=== PATIENT | male | born 1955 | race Caucasian/White ===

== ENCOUNTER 2019-07-14 10:22 | Inpatient (IN) ==
[2019-07-14] MEDS ORDERED: ONDANSETRON INJ 2 MG/ML 2 ML VIAL IV STA (10:39)
[2019-07-14] MEDS ORDERED: MoRPHine SULFATE 4 MG/ML 1 ML CARP\\VIAL IV STA (10:39)
[2019-07-14] MEDS ORDERED: SODIUM CHLORIDE 0.9% 500 ML IV SCH (10:45)
[2019-07-14 11:50] LABS: Basophils # (auto) 0.02 K/uL (0-0.2); Basophils % (auto) 0.3 %; Eosinophils # (auto) 0.11 K/uL (0-0.5); Eosinophils % (auto) 1.4 %; Hematocrit (blood only) 49.9 % (42-52); Hemoglobin 17.9 g/dL (14.0-18.0); Immature Granulocytes # (auto) 0.03 K/uL (0.00-0.02); Immature Granulocytes % (auto) 0.4 %; Lymphocytes # (auto) 1.54 K/uL (1.2-3.4); Lymphocytes % (auto) 20.2 %; Mean Corpuscular Hemoglobin 30.9 pg (25-34); Mean Corpuscular Hgb Conc 35.9 g/dL (32-36); Monocytes # (auto) 0.49 K/uL (0.11-0.59); Monocytes % (auto) 6.4 %; Neutrophils # (auto) 5.42 K/uL (1.4-6.5); Neutrophils % (auto) 71.3 %; Platelet Count 111 K/uL (130-400); RDW Coefficient of Variation 12.8 % (11.5-14.5); RDW Standard Deviation 40.2 fL (36.4-46.3); White Blood Count 7.61 K/uL (4.8-10.8)
[2019-07-14 12:16] LABS: Albumin Level 4.1 gm/dl (3.4-5.0); BUN Creatinine Ratio 15.2 (10-20); Calcium 9.4 mg/dl (8.5-10.1); Creatinine Clr Calc Pharmacy 69.9 ml/min; Est GFR (African American) 71.8; Est GFR (Non-African American) 61.9; Potassium 3.9 mmol/L (3.5-5.1)
[2019-07-14 12:18] LABS: Albumin Globulin Ratio 1.4 (0.9-2); Bilirubin,Total 2.8 mg/dl (0.2-1); Total Protein 7.1 gm/dl (6.4-8.2)
--- NOTE | 2019-07-14 13:35 | Ultrasound Report ---
US gallbladder HISTORY: Pain. Nausea. ruq pain eval for cholecystitis COMPARISON: 03/19/2019 FINDINGS: Gallbladder is again noted to be distended with a combination of sludge and gallstones. This distenti on is considered mild to moderate. No pericholecystic fluid. Fatty replacement of the liver. Pancreas is poorly seen due to overlying bowel content. Right kidney shows several cysts measuring up to 10 cm. This has been described on prior exams. No evidence for hy dronephrosis. IMPRESSION: 1. Mild to moderate distention of the gallbladder with a combination of contain stones and sludge. 2. Normal caliber common bile duct at 5 mm. 3. Fatty replacement of the liver. 4. Several right renal cyst. No evidence for hydronephrosis. 5. This study is similar compared to the prior exam. The above report was generated using voice recognition software. It may contain grammatical, syntax or spelling errors. Electronically signed by: Gilbert Watters M.D. 07/14/2019 1:34 PM
--- NOTE | 2019-07-14 15:00 | History & Physical Report ---
Date of Service July 14, 2019 Assessment & Plan (1) Biliary obstruction: Admits to PCU on telemetry for observation. Vital signs every [address] Oden MRCP ordered and pending Keep n.p.o. overnight Gentle IV fluid hydration with normal saline at 80 cc/h x1L Pain management with IV morphine 2 mg every 4 hours as needed and Toradol 15 mg every 6 hours as needed. Pantoprazole 40 mg p.o. every morning DVT prophylaxis SCDs and teds. Full code Present on Admission?: Yes (2) Cholelithiasis: Plan as above. Present on Admission?: Yes (3) Elevated lipase: Follow-up lipase and trend down. Present on Admission?: Yes (4) H/O: HTN (hypertension): Patient blood pressure was fluctuating during the day. Continue monitoring every 4 hours. Continue home medicine losartan 100 mg p.o. every morning and upgrade as needed. Patient advised about lifestyle modifications and weight loss. Present on Admission?: Yes (5) Complex sleep apnea syndrome: Continue CPAP that patient uses at home. Present on Admission?: Yes (6) Thrombocytopenia: It is not clear origin of thrombocytopenia but it was noted that platelets were decreased in March 2019 they were 97. Now they are 111. Not clear origin of thrombocytopenia. Patient denies bruising or internal blee ding. Would consider consulting hematology oncology for further evaluation of thrombocytopenia. Present on Admission?: Yes (7) Pulmonary nodule: CT scan showed incidental finding of 5 mm nodule within the left lower lobe. Optional follow-up is CT scan at 12 months. Present on Admission?: Yes History of Present Illness Chief Complaint: Right upper quadrant pain Primary Care Provider: TR Sim Patient is a 63 years old male with past medical history of pancreatitis, obstructive sleep apnea, patient uses CPAP at night, hypertension who presents to the emergency room with complaint of abdominal discomfort that started this morning around 6 AM. Patient developed a mostly right-sided abdominal pain that radiates to his back. Patient describes his pain as a back spasm. He noted that burping helped and relieved some of his pain. Patient reports having similar pain in March when he had a CT scan which showed distended gallbladder with stone and sludge. Patient states that he was dry heaving this morning but he did not vomit. Patient denies fever, chills, headache, chest pain, shortness of breath, frequency, urgency, melena, dysuria, hematuria or hematochezia. Labs are reviewed: WBC is 7.61, hemoglobin 17.9, hematocrit 49.9, platelets 111. Sodium 143, potassium 3.9, chloride 110, BUN 19, creatinine 1.24, GFR 61.9, AST 226, ALT 263, alkaline phosphatase 109, lipase 560. CT scan of abdomen and pelvis shows: Distended gallbladder. This is nonspecific but could represent a developing acute cholecystitis. Hepatic steatosis. No bowel wall thickening or obstruction. Normal appendix. Colonic diverticulosis. Bilateral renal cyst. A 5 mm nodule within the left lower lobe. Ultrasound of the right upper quadrant showed distended gallbladder containing a few punctate stones and sludge. No significant gallbladder wall thickening. Negative sonographic Jonas sign. There must be trace júnior-cholecystitis fluid/edema. Therefore these findings are equivocal to acute cholecystitis. Hepatic steatosis. Right renal cyst. Mild to moderate distention of the gallbladder with combination of containing stones and sludge. Normal caliber common bile duct at 5 mm(this was repeated test comparison to March 19, 2019). Decision was made to admit patient to PCU on telemetry for observation for biliary colic, developing acute cholecystitis. Allergies Allergy/AdvReac Type Severity Reaction Status Date / Time codeine AdvReac Nausea Unverified 07/14/19 11:11 Home Medications Home Medications Medication Instructions Recorded Confirmed Type fexofenadine 180 mg tablet 180 mg PO DAILY PRN tab 03/19/19 07/14/19 History mwaqmprt-sljcn-kzl9-C-gal-bor 1 tab PO QAM 03/19/19 07/14/19 History [Mbyilqlhwvb-Hmfix-XIL Complex] multivitamin with minerals 1 tab PO QAM tab 03/19/19 07/14/19 History rabeprazole [AcipHex] 20 mg PO QAM 03/19/19 07/14/19 History miscellaneous medical supply #1 ea 03/21/19 05/03/19 Rx miscellaneous medical supply #1 ea 05/03/19 05/03/19 Rx losartan [Cozaar] 100 mg PO QAM 07/14/19 07/14/19 History Past Med/Surg History Medical History Central apnea Complex sleep apnea syndrome H/O: HTN (hypertension) Obstructive sleep apnea of adult Pancreatitis Sleep apnea with use of continuous positive airway pressure (CPAP) Surgical History No pertinent past surgical history Family History Other Family history non-contributory Social History Preferred Language: Maltese Communication Ability: Effective Beliefs That Will Affect Care: None Current Living Situation: Spouse Other Information That Helps Us Care for You: No Feels Safe at Home: Yes Safety Concerns: Feels Safe At This Time Smoking Status: Never smoker Hx Alcohol Use: No Hx Substance Use: No Review of Systems Review of Systems: All systems reviewed & are unremarkable except as noted in HPI & below Physical Exam Constitutional: WD/WN, vitals as above well developed and + obese Eyes: PERRL, conjunctivae normal, anicteric sclerae ENMT: external ear and nose normal, oropharynx normal Neck: trachea midline, no thyromegaly Respiratory: normal respiratory effort, lungs clear to auscultation Cardiovascular: RRR, no murmur, no edema Gastrointestinal (Abdomen): Inspection/Auscultation: + abdomen distended and normal bowel sounds Percussion/Palpation: abdomen soft and + dullness to percussion Mild discomfort in the right upper quadrant. Musculoskeletal: no cyanosis or clubbing, extremities motor strength 5/5 Skin: no rashes, warm and dry Neurologic: patellar DTR's 2+ bilat, sensation intact Psychiatric: A+Ox3, euthymic affect Lymphatic: no cervical or axillary lymphadenopathy Results & Data Vital Signs (Past 12 Hours) Vital Signs Temp Pulse Resp BP Pulse Ox 07/14/19 14:00 81 16 159/97 H 98 07/14/19 13:34 83 18 170/110 H 95 07/14/19 13:00 80 15 137/96 95 07/14/19 12:30 80 16 142/92 H 93 07/14/19 12:00 81 20 137/91 92 07/14/19 11:22 81 91 07/14/19 10:28 36.8 C 68 16 176/109 H 94 Code Status & VTE Plan Code Status Full code VTE Prophylaxis Plan VTE Prophylaxis will be ordered: No Reason for no VTE drug order: Contraindicated PG Care Time/CCT Total # of Minutes Spent Total Time Spent with Patient: Total time spent is greater than 50% in coordination of care (as documented) at patient's floor/unit and/or counseling patient: (1) Cholelithiasis Biliary obstruction: with biliary obstruction Cholelithiasis location: other site Qualified Code(s): K80.81 - Other cholelithiasis with obstruction
--- NOTE | 2019-07-14 15:47 | Emergency Department Note ---
Entered by Glenna Guallpa acting as a scribe for Sukhi Santana MD History of Present Illness General Chief complaint: GI Assessment Stated complaint: GALL BLADDER ATTACK Time Seen by Provider: 07/14/19 10:32 Source: patient History of Present Illness Onset (ago): hour(s) (0600 this morning) Location: abdomen (left and right) Severity: similar to prior episodes (in March ) Maximum Pain Intensity: 8 Quality: + other (GI assessment ) Relieved By: + other (burping) Associated symptoms: + other (Positive dry heeaving this morning. Negative vomiting, black or bloody stools, fevers); no chest pain and no shortness of breath The patient is a 63 year old male who presents to the ED for a GI assessment. He notes around 0600 this morning, he developed left and right sided abdominal pain that radiates to his back. He describes his pain as a "back spasm." He notes that burping helps relieve some of his pain. He notes this is similar to the pain he had in March when he had a CT which showed a distended gall bladder with stones and sludge. He states he was dry heaving this morning but did not vomit. The patient denies any black or bloody stools, fevers, chest pain, SOB. Home Medications Home Medications Medication Instructions Recorded Confirmed Type fexofenadine 180 mg tablet 180 mg PO DAILY PRN tab 03/19/19 07/14/19 History kvhehttn-aplqk-cth0-C-gal-bor 1 tab PO QAM 03/19/19 07/14/19 History [Vxiqsdeyvcu-Cdfhy-XFS Complex] multivitamin with minerals 1 tab PO QAM tab 03/19/19 07/14/19 History rabeprazole [AcipHex] 20 mg PO QAM 03/19/19 07/14/19 History miscellaneous medical supply #1 ea 03/21/19 05/03/19 Rx miscellaneous medical supply #1 ea 05/03/19 05/03/19 Rx losartan [Cozaar] 100 mg PO QAM 07/14/19 07/14/19 History Allergies Allergy/AdvReac Type Severity Reaction Status Date / Time codeine AdvReac Nausea Unverified 07/14/19 11:11 Past Med/Surg History Medical History Central apnea Complex sleep apnea syndrome H/O: HTN (hypertension) Obstructive sleep apnea of adult Pancreatitis Sleep apnea with use of continuous positive airway pressure (CPAP) Surgical History No pertinent past surgical history Family History Other Family history non-contributory Social History Preferred Language: Estonian Feels Safe at Home: Yes Smoking Status: Never smoker Review of Systems See HPI for pertinent positives & negatives. and A total of 10 systems reviewed and were otherwise negative Physical Exam Vital Signs Vital Signs - 24 hr 07/14/19 10:28 07/14/19 11:22 07/14/19 12:00 Temperature 36.8 C Temperature Source Oral Pulse Rate 68 81 81 Pulse Rate from SpO2 Sensor 81 Pulse Rhythm Regular Respiratory Rate 16 20 Respiratory Depth Normal Blood Pressure 176/109 H 137/91 Blood Pressure Mean 131 98 Pulse Oximetry 94 91 92 Oxygen Delivery Method Room Air Room Air Sepsis Recent Fever Within 48 Hours No Sepsis Action Taken by Nursing No Action Required 07/14/19 12:30 07/14/19 13:00 07/14/19 13:34 Temperature Temperature Source Pulse Rate 80 80 83 Pulse Rate from SpO2 Sensor 80 79 79 Pulse Rhythm Respiratory Rate 16 15 18 Respiratory Depth Blood Pressure 142/92 H 137/96 170/110 H Blood Pressure Mean 97 101 116 Pulse Oximetry 93 95 95 Oxygen Delivery Method Sepsis Recent Fever Within 48 Hours Sepsis Action Taken by Nursing 07/14/19 14:00 Temperature Temperature Source Pulse Rate 81 Pulse Rate from SpO2 Sensor 82 Pulse Rhythm Respiratory Rate 16 Respiratory Depth Blood Pressure 159/97 H Blood Pressure Mean 113 Pulse Oximetry 98 Oxygen Delivery Method Sepsis Recent Fever Within 48 Hours Sepsis Action Taken by Nursing Constitutional: Vital signs reviewed. Eyes: Pupils are equal round reactive to light. Conjunctiva are noninjected. ENT: Pharynx is clear without erythema or exudate. Mucous membranes are moist. Neck supple without meningeal signs. No uvula present Respiratory: Clear to auscultation bilaterally. Breath sounds are equal bilaterally. Cardiovascular: Regular rate and rhythm. No rubs or gallops. GI: Soft, nondistended. Epigastric and RUQ tenderness. No [place] sign Bowel sounds are present. Musculoskeletal: No peripheral edema. No lower extremity tenderness. Integumentary: No cyanosis. Neurological: The patient is awake and alert. No focal deficits. Psychiatric: Normal affect. Course Course 1035: Past medical records reviewed. The patient was evaluated in room B4. A complete history and physical exam was performed. 1249: I updated the patient at this time. I discussed his test results with him. He is feeling better and waiting for ultrasound. 1340: I updated the patient at this time. He is tenter frame back tender in the RUQ. I recommended hospitalization. Paged surgery. 1345: Discussed the patient's case with Dr. Norton, General Surgery. He recommends the patient be further evaluated by medicine. He will also further evaluate. 1350: Discussed the patient's case with Dr. Rosales, [facility] Hospitalist. The patient will be evaluated for further management. Administered Medications Discontinued Medications Sodium Chloride (Nss) 500 mls @ 999 mls/hr IV .Q31M WINDY Stop: 07/14/19 11:15 Last Infusion: 07/14/19 12:43 Dose: 0 mls/hr Documented by: [id number] Admin: 07/14/19 11:36 Dose: 999 mls/hr Documented by: [id number] Morphine Sulfate (Morphine Sulfate) 4 mg IV NOW STA Stop: 07/14/19 10:40 Last Admin: 07/14/19 11:37 Dose: 4 mg Documented by: [id number] Ondansetron HCl (Zofran) 4 mg IV NOW STA Stop: 07/14/19 10:40 Last Admin: 07/14/19 11:37 Dose: 4 mg Documented by: [id number] Medical Decision Making Differential Diagnosis Differential diagnosis: Etiologies such as cholecystitis, choledocholithiasis, pancreatitis, PUD, kidney stone, UTI, as well as others were entertained. Medical Records Attestation: I reviewed the patient's medical records. I did perform a limited focused review of portions of the patient's old chart on the electronic medical record. He was seen in March for abdominal pain. He had a CT which showed a distended gallbladder. He had an ultrasound which showed a distended gallbladder with stones and sludge. He did not have significant RUQ pain at the time. So he was discharged home. Home Medications Current Medication List: was personally reviewed by Laboratory Data Attestation: I reviewed the patient's lab results. Result diagrams: 07/14/19 11:40 07/14/19 11:40 Lab Results 07/14/19 07/14/19 Range/Units 11:40 11:40 WBC 7.61 (4.8-10.8) K/uL RBC 5.80 (4.7-6.1) M/uL Hgb 17.9 (14.0-18.0) g/dL Hct 49.9 (42-52) % MCV 86.0 (80-100) fL MCH 30.9 (25-34) pg MCHC 35.9 (32-36) g/dL RDW Std Deviation 40.2 (36.4-46.3) fL RDW Coeff of Sharee 12.8 (11.5-14.5) % Plt Count 111 L (130-400) K/uL MPV 10.0 (7.4-10.4) fL Immature Gran % (Auto) 0.4 % Neut % (Auto) 71.3 % Lymph % (Auto) 20.2 % Garza % (Auto) 6.4 % Eos % (Auto) 1.4 % Baso % (Auto) 0.3 % Immature Gran # (Auto) 0.03 H (0.00-0.02) K/uL Neut # (Auto) 5.42 (1.4-6.5) K/uL Lymph # (Auto) 1.54 (1.2-3.4) K/uL Garza # (Auto) 0.49 (0.11-0.59) K/uL Eos # (Auto) 0.11 (0-0.5) K/uL Baso # (Auto) 0.02 (0-0.2) K/uL Sodium 143 (136-145) mmol/L Potassium 3.9 (3.5-5.1) mmol/L Chloride 110 H (98-107) mmol/L Carbon Dioxide 27 (21-32) mmol/L Anion Gap 6.0 (3-11) BUN 19 H (7-18) mg/dl Creatinine 1.24 (0.6-1.4) mg/dl Est Cr Clr Drug Dosing 69.9 ml/min Est GFR ( Amer) 71.8 Est GFR (Non-Af Amer) 61.9 BUN/Creatinine Ratio 15.2 (10-20) Glucose 100 H (70-99) mg/dl Calcium 9.4 (8.5-10.1) mg/dl Total Bilirubin 2.8 H (0.2-1) mg/dl AST 226 H (15-37) U/L ALT 263 H (12-78) U/L Alkaline Phosphatase 109 (45-117) U/L Total Protein 7.1 (6.4-8.2) gm/dl Albumin 4.1 (3.4-5.0) gm/dl Globulin 3.0 (2.5-4.0) gm/dl Albumin/Globulin Ratio 1.4 (0.9-2) Lipase 560 H (73-393) U/L Imaging Data Radiologist's Impression: Radiology results as stated below per my review and the radiologist's interpretation: US gallbladder HISTORY: Pain. Nausea. ruq pain eval for cholecystitis COMPARISON: 03/19/2019 FINDINGS: Gallbladder is again noted to be distended with a combination of sludge and gallstones. This distention is considered mild to moderate. No pericholecystic fluid. Fatty replacement of the liver. Pancreas is poorly seen due to overlying bowel content. Right kidney shows several cysts measuring up to 10 cm. This has been described on prior exams. No evidence for hydronephrosis. IMPRESSION: 1. Mild to moderate distention of the gallbladder with a combination of contain stones and sludge. 2. Normal caliber common bile duct at 5 mm. 3. Fatty replacement of the liver. 4. Several right renal cyst. No evidence for hydronephrosis. 5. This study is similar compared to the prior exam. The above report was generated using voice recognition software. It may contain grammatical, syntax or spelling errors. Electronically signed by: Gilbert Watters M.D. 07/14/2019 1:34 PM ECG Data Attestation: I personally reviewed and interpreted this ECG as follows: Indication: + abdominal pain Rate (beats per minute): 68 Rhythm: + normal sinus ECG ST segments: no ST elevation ECG Findings: + Other (QRS is 90); no PVCs Blood Pressure Blood Pressure Findings: Elevated blood pressure Blood Pressure Disposition: further management by hospitalist [facility] Narrative I did evaluate the patient as noted above. The patient is presenting with upper abdominal pain. He is mostly tender in the epigastric region and right upper quadrant. He does not have a Jonas sign. IV access was established. The patient was placed on a continuous school librarian. I did treat the patient with IV morphine and Zofran. He was also given normal saline IV. I did order and personally review the patient's 12-lead EKG as described above. He has normal sinus rhythm without any acute ischemic changes.. I did order and review the patient's blood work as noted in the electronic medical record. His white blood cell count is not elevated. He is not anemic. His total bilirubin is 2.8. AST and ALT are both above 200. Lipase is 560. I did order ultrasound of the right upper quadrant. I did review the images myself as well as the radiology report as described above. He has a moderately distended gallbladder with gallstones and sludge. There is no pericholecystic fluid. CBD is not dilated. I did reassess the patient. He states he feels better but that the pain is starting to come back. He is still somewhat tender in the right upper quadrant. I did discuss the case with Dr. Norton of surgery. He recommended hospitalization by the hospitalist and GI consultation. I did speak to the [facility] pitalist and transplant case manager. Impression & Plan Biliary obstruction, Cholelithiasis, Elevated lipase Discharge Plan Visit Data Chief Complaint: GI Assessment Stated Complaint: GALL BLADDER ATTACK ED Provider: Sukhi Santana Discharge Problem: Biliary obstruction, Cholelithiasis, Elevated lipase Patient Disposition: Being Evaluated by Hospitalist Forms Stand Alone Forms: My [facility] Prescriptions Prescriptions: No Action (DME) CPAP Supplies Misc See Dose Instructions .ROUTE .MEDSUPPLY Qty: 1 RF: 0 (DME) CPAP Supplies Misc See Dose Instructions .ROUTE .MEDSUPPLY Qty: 1 RF: 0 fexofenadine [Jami Allergy] 180 mg tablet 180 mg PO DAILY PRN (Reason: Allergy Symptoms) RF: 0 multivitamin with minerals [Men's One Daily] tablet 1 tab PO QAM RF: 0 losartan [Cozaar] 100 mg tablet 100 mg PO QAM RF: 0 rabeprazole [AcipHex] 20 mg tablet,delayed release (DR/EC) 20 mg PO QAM RF: 0 Hxkxvsoconx-Kvagv-KRB Complex [id number] mg Tablet 1 tab PO QAM RF: 0 Referrals Referrals: Alexandria Contreras CRNP [Primary Care Provider] - Discharge Problem: Cholelithiasis Qualifiers: Cholelithiasis location: other site Biliary obstruction: with biliary obstruction Qualified Code(s): K80.81 - Other cholelithiasis with obstruction The scribe's documentation has been prepared under my direction and personally reviewed by me in its entirety. I confirm that the note above accurately reflects all work, treatment, procedures, and medical decision making performed by me.
[2019-07-14 16:31] LABS: Appearance Urine Clear (Clear); Blood Urine Negative (Negative); Color Urine Dark Yellow; Glucose Urine UA Negative (Negative); Ketones Urine Negative (Negative); Leukocyte Esterase Urine Negative (Negative); Nitrite Urine Negative (Negative); Protein Urine Negative (Negative); Specific Gravity Urine 1.019 (1.000-1.030); Urobilinogen Urine Negative (Negative); pH Urine 7.5 (4.5-7.5)
[2019-07-14 16:35] LABS: Bilirubin Urine 1+ (Negative)
[2019-07-14 16:36] LABS: Ictotest Urine Positive (Negative)
[2019-07-14] MEDS ORDERED: MoRPHine SULFATE 2 MG/ML CARP IV PRN (17:55)
[2019-07-14] MEDS ORDERED: MAGNESIUM HYDROXIDE SUSP 30 ML UDC PO PRN (17:55)
[2019-07-14] MEDS ORDERED: FEXOFENADINE HCL 180 MG TAB PO PRN (17:55)
[2019-07-14] MEDS ORDERED: ALUMINUM/MAGNESIUM SUSP 30 ML UDC PO PRN (17:55)
[2019-07-14] MEDS: CEROVITE ADV FORMULA TAB PO SCH (18:37)
[2019-07-14] MEDS: SODIUM CHLORIDE 0.9% 1000ML 1,000 ML IV SCH (18:37)
[2019-07-14] MEDS: LOSARTAN POTASSIUM 50 MG TAB PO SCH (18:37)
[2019-07-14] MEDS: KETOROLAC TROMETHAMINE 15 MG/ML VIAL IV PRN (19:39)
[2019-07-14] MEDS: ONDANSETRON INJ 2 MG/ML 2 ML VIAL IV PRN (21:45)
--- NOTE | 2019-07-15 06:50 | Magnetic Resonance Report ---
MR MRCP CLINICAL HISTORY: Acute cholecystitis COMPARISON STUDY: CT scan dated 03/19/2019 FINDINGS: A breath-hold MRCP was performed. MIP images were acquired. There are multiple bilateral renal cysts. The gallbladder is mildly distended. No calculi are visualized. There are no ductal filling defects. The common bile duct is of normal caliber. There is no pancreati c ductal dilatation. IMPRESSION: 1. Normal bile ducts and pancreatic duct 2. Mild gallbladder distention. No calculi identified Electronically signed by: Tanner Morton M.D. 07/15/2019 6:48 AM
[2019-07-15 07:52] LABS: Hematocrit (blood only) 43.5 % (42-52); Hemoglobin 15.6 g/dL (14.0-18.0); Mean Corpuscular Hemoglobin 30.8 pg (25-34); Mean Corpuscular Hgb Conc 35.9 g/dL (32-36); Mean Corpuscular Volume 85.8 fL (80-100); RDW Coefficient of Variation 12.9 % (11.5-14.5); RDW Standard Deviation 40.5 fL (36.4-46.3); Red Blood Count 5.07 M/uL (4.7-6.1); White Blood Count 6.03 K/uL (4.8-10.8)
[2019-07-15 07:53] LABS: Mean Platelet Volume 10.4 fL (7.4-10.4); Platelet Count 94 K/uL (130-400)
[2019-07-15] MEDS: ONDANSETRON INJ 2 MG/ML 2 ML VIAL IV PRN ×2 (07:57→20:32)
[2019-07-15] MEDS: SODIUM CHLORIDE 0.9% 1000ML 1,000 ML IV SCH ×2 (07:59→17:44)
[2019-07-15 08:21] LABS: Albumin Globulin Ratio 1.1 (0.9-2); Albumin Level 3.2 gm/dl (3.4-5.0); BUN Creatinine Ratio 15.8 (10-20); Creatinine Clr Calc Pharmacy 55.9 ml/min; Est GFR (African American) 55.2; Est GFR (Non-African American) 47.6; Globulin 2.9 gm/dl (2.5-4.0); Potassium 4.3 mmol/L (3.5-5.1); Thyroid Stimulating Hormone 0.632 uIu/ml (0.300-4.500); Total Protein 6.1 gm/dl (6.4-8.2)
[2019-07-15 08:24] LABS: Bilirubin,Total 7.4 mg/dl (0.2-1); Calcium 8.7 mg/dl (8.5-10.1)
--- NOTE | 2019-07-15 08:53 | Surgery Consultation ---
Date of Consultation July 15, 2019 Assessment & Plan (1) Cholelithiasis: This is a 63y M who presents to the [facility] ED on 07/14/19 with right sided abdominal pain. Workup included a RUQ US revealing stones, sludge and mild gb distention and an MRCP which interestingly showed no stones/sludge, normal bile ducts, as well as mild gb distention. Since yesterday LFT's have uptrended Tbili: 7.4 (2.8), AST: 536 (226), ALT: 966 (263), and lipase down from 560 (146). Patient's WBC is normal at 6 and he is afebrile. Patient's abdominal pain is improving, however since admission has developed nausea and had multiple bouts of vomiting. With the uptrend of his LFT's and high total bilirubin would recommend further workup by GI to rule up other sources vs. rule out obstruction with potential ERCP. Would like to see his labs downtrend prior to taking patient for a laparoscopic cholecystectomy. Keep NPO with IVF for now. We will continue to follow. (2) Biliary obstruction: Supervising Physician Co-Signing Physician Notes Patient seen and examined, labs and imaging reviewed, agree with above. 63-year-old male with known history of cholelithiasis presented to the emergency department with pain that awaken him from sleep early yesterday morning. He presented to the emergency department and had an ultrasound which showed a distended gallbladder but no pericholecystic fluid or gallbladder wall thickening, normal common bile duct, and some sludge and stones. His white blood cell count was normal, however his bilirubin and AST and ALT were slightly elevated. He was admitted to the medicine service for further evaluation. An MRCP was obtained which showed no biliary obstruction, and interestingly showed no evidence of cholelithiasis. This morning he is still having some discomfort in his epigastrium and right upper quadrant. On exam he is jaundiced, with stable vitals. His abdomen is soft and mildly tender to palpation in the right upper quadrant with negative Jonas sign. His white blood cell count remains normal, however his bilirubin and AST/ALT have significantly increased. His lipase has decreased. Overall this appears to be either an obstructive pattern from cholelithiasis or possibly an underlying liver dysfunction. At this point will defer to GI for ERCP or further work-up. If his labs are downtrending tomorrow, then we will consider him for possible cholecystectomy. If his labs are continuing to trend upward, then I would hesitate to perform surgery without further work up. Depending upon the plan from GI, the patient may have clear liquids today from surgery standpoint, make n.p.o. after midnight. History of Present Illness Attending Physician: Jaret Isbell, DO History of Present Illness This is a 63y M who presents to the [facility] ED on 07/14/19 with abdominal pain. Patient reports his pain started around 6:30am yesterday which progressively worsened prompting him to be evaluated in the ED. Pain is located in the right sided abdomen and radiates towards his back. Patient states he experienced pain one other time like this before, back in March when he underwent a RUQ US showing stones/sludge and he was sent home to follow up with his PCP. Patient underwent a RUQ US in the ED which revealed a normal common bile duct, mild distention of gallbladder, with stones and sludge. Labs in the ED revealed a WBC: 7.6, Tbili: 2.8, Lipase: 560, AST: 226, ALT: 263. Patient was admitted to medicine and an MRCP was obtained that showed normal bile ducts with mild gallbladder distention without stones or sludge. Surgery was consulted for further evaluation. Since admission patient has experienced multiple bouts of vomiting (6x yest, 1x today) and chills/sweats. His abdominal pain is improved but tender with palpation. He denies any association with food. Last ate a ham sandwich on Tuesday. No past abdominal surgeries. Allergies Allergy/AdvReac Type Severity Reaction Status Date / Time codeine AdvReac Nausea Unverified 07/14/19 11:11 Home Medications Home Medications Medication Instructions Recorded Confirmed Type fexofenadine 180 mg tablet 180 mg PO DAILY PRN tab 03/19/19 07/14/19 History puvwgxcb-rzjsg-luz9-C-gal-bor 1 tab PO QAM 03/19/19 07/14/19 History [Wohdxlehnks-Zlwmv-ZUQ Complex] multivitamin with minerals 1 tab PO QAM tab 03/19/19 07/14/19 History rabeprazole [AcipHex] 20 mg PO QAM 03/19/19 07/14/19 History miscellaneous medical supply #1 ea 03/21/19 05/03/19 Rx miscellaneous medical supply #1 ea 05/03/19 05/03/19 Rx losartan [Cozaar] 100 mg PO QAM 07/14/19 07/14/19 History Patient History Medical History Central apnea Complex sleep apnea syndrome H/O: HTN (hypertension) Obstructive sleep apnea of adult Pancreatitis Sleep apnea with use of continuous positive airway pressure (CPAP) Surgical History No pertinent past surgical history Family History Other Family history non-contributory Social History Preferred Language: [place] Communication Ability: Effective Beliefs That Will Affect Care: None Current Living Situation: Spouse Other Information That Helps Us Care for You: No Feels Safe at Home: Yes Safety Concerns: Feels Safe At This Time Smoking Status: Never smoker Hx Alcohol Use: No Hx Substance Use: No Review of Systems Constitutional: + chills and + sweats Gastrointestinal: + abdominal pain (right upper abdomen, radiating to back), + nausea and + vomiting Physical Exam Physical Exam: awake/alert Constitutional: well developed and well nourished; no acute distress Eyes: PERRL, conjunctivae normal, anicteric sclerae ENMT: external ear and nose normal, oropharynx normal Neck: trachea midline, no thyromegaly Respiratory: normal respiratory effort Cardiovascular: RRR, no murmur, no edema Gastrointestinal (Abdomen): Inspection/Auscultation: + abdomen distended (mild) Percussion/Palpation: + abdomen tender (to deep palpation in RUQ) and abdomen soft Musculoskeletal: no cyanosis or clubbing, extremities motor strength 5/5 Skin: no rashes, warm and dry Neurologic: PERRL, EOMI, accommodation nl, no face palsy, no dysarthria Psychiatric: A+Ox3, euthymic affect Lymphatic: no cervical or axillary lymphadenopathy Results & Data Vital Signs (Past 12 Hours) Vital Signs Temp Pulse Pulse Resp BP Pulse Ox 07/15/19 07:54 36.5 C 84 18 151/96 H 95 07/15/19 04:04 36.6 C 84 18 137/87 95 07/14/19 23:18 36.5 C 88 20 143/91 H 98 07/14/19 22:55 82 16 95 US gallbladder HISTORY: Pain. Nausea. ruq pain eval for cholecystitis COMPARISON: 03/19/2019 FINDINGS: Gallbladder is again noted to be distended with a combination of sludge and gallstones. This distention is considered mild to moderate. No pericholecystic fluid. Fatty replacement of the liver. Pancreas is poorly seen due to overlying bowel content. Right kidney shows several cysts measuring up to 10 cm. This has been described on prior exams. No evidence for hydronephrosis. IMPRESSION: 1. Mild to moderate distention of the gallbladder with a combination of contain stones and sludge. 2. Normal caliber common bile duct at 5 mm. 3. Fatty replacement of the liver. 4. Several right renal cyst. No evidence for hydronephrosis. 5. This study is similar compared to the prior exam. The above report was generated using voice recognition software. It may contain grammatical, syntax or spelling errors. Electronically signed by: Gilbert Watters M.D. 07/14/2019 1:34 P MR MRCP CLINICAL HISTORY: Acute cholecystitis COMPARISON STUDY: CT scan dated 03/19/2019 FINDINGS: A breath-hold MRCP was performed. MIP images were acquired. There are multiple bilateral renal cysts. The gallbladder is mildly distended. No calculi are visualized. There are no ductal filling defects. The common bile duct is of normal caliber. There is no pancreatic ductal dilatation. IMPRESSION: 1. Normal bile ducts and pancreatic duct 2. Mild gallbladder distention. No calculi identified Electronically signed by: Tanner Morton M.D. 07/15/2019 6:48 AM Laboratory Results Laboratory Results - last 24 hr 07/14/19 07/14/19 07/14/19 11:40 11:40 15:08 WBC 7.61 RBC 5.80 Hgb 17.9 Hct 49.9 MCV 86.0 MCH 30.9 MCHC 35.9 RDW Std Deviation 40.2 RDW Coeff of Sharee 12.8 Plt Count 111 L MPV 10.0 Immature Gran % (Auto) 0.4 Neut % (Auto) 71.3 Lymph % (Auto) 20.2 Boundary % (Auto) 6.4 Eos % (Auto) 1.4 Baso % (Auto) 0.3 Immature Gran # (Auto) 0.03 H Neut # (Auto) 5.42 Lymph # (Auto) 1.54 Boundary # (Auto) 0.49 Eos # (Auto) 0.11 Baso # (Auto) 0.02 RBC Morphology Sodium 143 Potassium 3.9 Chloride 110 H Carbon Dioxide 27 Anion Gap 6.0 BUN 19 H Creatinine 1.24 Est Cr Clr Drug Dosing 69.9 Est GFR ( Amer) 71.8 Est GFR (Non-Af Amer) 61.9 BUN/Creatinine Ratio 15.2 Glucose 100 H Estimat Average Glucose Hemoglobin A1c Calcium 9.4 Total Bilirubin 2.8 H AST 226 H ALT 263 H Alkaline Phosphatase 109 NT-Pro-B Natriuret Pep Total Protein 7.1 Albumin 4.1 Globulin 3.0 Albumin/Globulin Ratio 1.4 Triglycerides Cholesterol LDL Cholesterol, Calc VLDL Cholesterol, Calc HDL Cholesterol Cholesterol/HDL Ratio Amylase Lipase 560 H TSH Urine Color Dark Yellow Urine Appearance Clear Urine pH 7.5 Ur Specific [place] 1.019 Urine Protein Negative Urine Glucose (UA) Negative Urine Ketones Negative Urine Blood Negative Urine Nitrite Negative Urine Bilirubin 1+ H Urine Urobilinogen Negative Ur Leukocyte Esterase Negative 07/15/19 07/15/19 07/15/19 07:16 07:16 07:16 WBC 6.03 RBC 5.07 Hgb 15.6 Hct 43.5 MCV 85.8 MCH 30.8 MCHC 35.9 RDW Std Deviation 40.5 RDW Coeff of Sharee 12.9 Plt Count 94 L MPV 10.4 Immature Gran % (Auto) 0.3 Neut % (Auto) 80.9 Lymph % (Auto) 11.1 Boundary % (Auto) 7.0 Eos % (Auto) 0.5 Baso % (Auto) 0.2 Immature Gran # (Auto) 0.02 Neut # (Auto) 4.88 Lymph # (Auto) 0.67 L Boundary # (Auto) 0.42 Eos # (Auto) 0.03 Baso # (Auto) 0.01 RBC Morphology Unremarkable Sodium 143 Potassium 4.3 Chloride 111 H Carbon Dioxide 26 Anion Gap 6.0 BUN 24 H Creatinine 1.54 H D Est Cr Clr Drug Dosing 55.9 Est GFR ( Amer) 55.2 Est GFR (Non-Af Amer) 47.6 BUN/Creatinine Ratio 15.8 Glucose 95 Estimat Average Glucose Pending Hemoglobin A1c Pending Calcium 8.7 Total Bilirubin 7.4 H D AST 536 H ALT 966 H Alkaline Phosphatase 123 H NT-Pro-B Natriuret Pep 283 Total Protein 6.1 L Albumin 3.2 L Globulin 2.9 Albumin/Globulin Ratio 1.1 Triglycerides Cancelled Cholesterol Cancelled LDL Cholesterol, Calc Cancelled VLDL Cholesterol, Calc Cancelled HDL Cholesterol Cancelled Cholesterol/HDL Ratio Cancelled Amylase 30 Lipase 146 TSH 0.632 Urine Color Urine Appearance Urine pH Ur Specific [place] Urine Protein Urine Glucose (UA) Urine Ketones Urine Blood Urine Nitrite Urine Bilirubin Urine Urobilinogen Ur Leukocyte Esterase PG Care Time/CCT Total # of Minutes Spent Total Time Spent with Patient: Total time spent is greater than 50% in coordination of care (as documented) at patient's floor/unit and/or counseling patient: (1) Cholelithiasis Biliary obstruction: with biliary obstruction Cholelithiasis location: other site Qualified Code(s): K80.81 - Other cholelithiasis with obstruction
[2019-07-15] MEDS ORDERED: NON-FORMULARY MEDICATION (Glucosam-Chond-Msm1-C-Mang-Bor [Glucosamine-Chond-Msm Complex] 1 PO SCH (09:00)
[2019-07-15] MEDS ORDERED: PIPERACILL/TAZOBAC CONSULT ACTIVE PRN (09:02)
[2019-07-15 09:08] LABS: Basophils # (auto) 0.01 K/uL (0-0.2); Basophils % (auto) 0.2 %; Eosinophils # (auto) 0.03 K/uL (0-0.5); Eosinophils % (auto) 0.5 %; Immature Granulocytes # (auto) 0.02 K/uL (0.00-0.02); Immature Granulocytes % (auto) 0.3 %; Lymphocytes # (auto) 0.67 K/uL (1.2-3.4); Lymphocytes % (auto) 11.1 %; Monocytes # (auto) 0.42 K/uL (0.11-0.59); Neutrophils # (auto) 4.88 K/uL (1.4-6.5); Neutrophils % (auto) 80.9 %; RBC Morphology Unremarkable
[2019-07-15] MEDS ORDERED: PIPERACILLIN/TAZOBACTAM 3.375 GM in DEXTROSE 5% 100 ML IV SCH (09:15)
--- NOTE | 2019-07-15 09:28 | Hospitalist Progress Note ---
Date of Service July 15, 2019 Assessment & Plan (1) Transaminitis: -GB U/S - findings are normal caliber common bile duct, mild to moderate distention of the gallbladder with stones and sludge, fatty liver, several renal cyst without hydronephrosis -MRCP revealed normal bile and pancreatic ducts and mild gallbladder distention without calculi identified -Bilirubin and LFTs continue to trend up -currently bili at 7.4, AST 536, and ALT 966; alk phos only minimally elevated at 123; initial elevated lipase is now resolved; coag testing pending -Rather acute issue -no known chronic liver disease --Reports history of unspecified hepatitis in 1983 related to consumption of raw seafood; is not certain if he has been checked for hepatitis C given age --Denies alcohol consumption or excessive Tylenol use --No diagnosis or clinical signs to suggest congestion due to CHF -BNP within normal limits -Zosyn initiated -Continue IVF at 125 mL/hr given emesis and slight rise in creatinine -Supportive therapy with pain management and antiemetics -GI following -discussed with Dr. Oden feels this is likely related to acute cholecystitis; no ERCP warranted at this time -Gen Surg following -plan to follow LFTs and consideration for cholecystectomy pending possible need for further work-up (2) Biliary obstruction: -No clear stone obstruction on MRCP -direct bilirubin added to AM labs; further treatment as discussed above (3) Cholelithiasis: -Treatment as above (4) Elevated lipase: -Only mild elevation on admission at 500 -may correlate with excessive vom iting and currently resolved -given symptoms we will repeat lipase this afternoon with additional labs (5) Essential hypertension: -Slightly elevated -possibly due to dry heaving and vomiting/discomfort -Hold Losartan given mildly elevated creatinine and difficulty keeping orals down; cover with hydralazine IV as needed (6) Complex sleep apnea syndrome: -Stable; continue CPAP at night (7) Thrombocytopenia: -Uncertain of underlying etiology -is a rather isolated finding as he is not deficient other blood counts -Currently awaiting coag studies -does have fatty liver on imaging -possible relation to underlying liver dysfunction? -No signs of bleeding at this time -We will have to monitor platelet count closely is currently on Zosyn therapy which can induce further thrombocytopenia (8) Pulmonary nodule: -CT from March shows single 5 mm nodule in LLL -could consider optional CT at 12 months (March 2020) (9) DVT prophylaxis: -SCD; hold chemical prophylaxis due to possibility of surgery Disposition: Continue to trend daily labs; possible need for cholecystectomy Subjective Patient reports improving abdominal pain. However continues to have nausea with bile-like emesis. He states his symptoms are similar to when he presented in March with abdominal pain. Bilirubin and LFTs continue to rise. Discussed with Dr. Oden who feels ultimately cholecystectomy as needed. He does report having unspecified hepatitis in 1983 related to consumption of raw seafood. He denies known liver dysfunction. He denies excessive Tylenol intake and denies alcohol consumption. He is not sure if he has been tested for hepatitis C given his age. Review of Systems Constitutional: + chills (Last night) and + sweats (Last night after experiencing chills) Respiratory: no cough and no dyspnea Cardiovascular: no chest pain and no palpitations Gastrointestinal: + abdominal pain, + nausea and + vomiting; no constipation and no diarrhea/loose stools Genitourinary: no dysuria Integumentary: no rash Neurologic: no tingling and no numbness Physical Exam Constitutional: WD/WN, vitals as above Eyes: + anicteric sclerae; no conjunctival abnormality ENMT: Ears: no hearing impairment Neck: trachea midline Respiratory: normal respiratory effort, lungs clear to auscultation Cardiovascular: RRR, no murmur, no edema Gastrointestinal (Abdomen): Inspection/Auscultation: normal bowel sounds Percussion/Palpation: + abdomen tender and abdomen soft; no guarding and abdomen not rigid Musculoskeletal: Head/Neck/Chest: normocephalic and head atraumatic Skin: no rashes, warm and dry Neurologic: moves all extremities Psychiatric: A+Ox3, euthymic affect Results & Data Vital Signs (Past 12 Hours) Vital Signs Temp Pulse Pulse Resp BP Pulse Ox 07/15/19 07:54 36.5 C 84 18 151/96 H 95 07/15/19 04:04 36.6 C 84 18 137/87 95 07/14/19 23:18 36.5 C 88 20 143/91 H 98 07/14/19 22:55 82 16 95 PG Care Time/CCT Total # of Minutes Spent Total Time Spent with Patient: Total time spent is greater than 50% in coordination of care (as documented) at patient's floor/unit and/or counseling patient: (1) Cholelithiasis Biliary obstruction: with biliary obstruction Cholelithiasis location: other site Qualified Code(s): K80.81 - Other cholelithiasis with obstruction
[2019-07-15] MEDS ORDERED: PIPERACILLIN/TAZOBACTAM 4.5 GM in DEXTROSE 5% 100 ML IV ONE (09:30)
--- NOTE | 2019-07-15 09:57 | Progress Note ---
DATE: 07/15/2019 REASON FOR EVALUATION: Right upper quadrant pain, abnormal liver tests and gallstones. HISTORY OF PRESENT ILLNESS: The patient is a 63-year-old male who was hospitalized in March with what sounds like attack of biliary colic. At that time, he was found to have gallstones and he improved and was discharged home. He did well until 6 o'clock yesterday morning when he began having another attack with pain in the right upper quadrant, referred to the right flank and scapular area. This was associated with multiple episodes of nausea and vomiting. He presented to the Emergency Room where he was evaluated and found to have abnormal liver tests with an elevated bilirubin, alkaline phosphatase and aminotransferases. His lipase was slightly elevated at 500. Ultrasound showed small gallstones and sludge. MRCP showed normal caliber biliary duct at 5 mm with no filling defects. GI consultation has been obtained for evaluation. Continues to have pain and nausea and vomiting. PAST MEDICAL HISTORY: Remarkable for sleep apnea. He has had an uvulectomy for that. He has hypertension. He has had knee surgery in the past. MEDICATIONS: Jami, glucosamine, multiple vitamin, Aciphex and Cozaar. ALLERGIES: CODEINE CAUSES NAUSEA. FAMILY HISTORY: Positive for mother who had her gallbladder out. SOCIAL HISTORY: The patient does not smoke, feels safe at home. REVIEW OF SYSTEMS: Positive for nausea associated with general anesthesia. PHYSICAL EXAMINATION: GENERAL: The patient appears awake, alert, in no acute distress. VITAL SIGNS: Normal. He is afebrile. LUNGS: Clear. HEART: Showed a normal rate and rhythm without murmurs, rubs, or gallops. ABDOMEN: Soft. There was some tenderness in the right upper quadrant, but no Jonas sign. IMPRESSION: The patient appears to have acute cholecystitis. His white count is normal. His liver tests are elevated, but this is most likely inflammation of the liver from an inflamed gallbladder rather than a common bile duct stone as his MRCP is normal size and without filling defects. At this point, I would recommend starting him on antibiotics. I have ordered Zosyn and a surgical consult has been ordered as well to evaluate the patient for cholecystectomy. I do not believe an ERCP is indicated at this time.
[2019-07-15] MEDS: LOSARTAN POTASSIUM 50 MG TAB PO SCH (10:04)
[2019-07-15] MEDS: CEROVITE ADV FORMULA TAB PO SCH (10:05)
[2019-07-15] MEDS: PANTOprazole 40 MG TAB PO SCH (10:05)
[2019-07-15] MEDS ORDERED: PROMETHAZINE HCL 6.25 MG in SODIUM CHLORIDE 0.9% 50 ML IV PRN (11:56)
[2019-07-15] MEDS ORDERED: HydrALAZINE HCL 20 MG/ML VIAL IV PRN (12:58)
[2019-07-15] MEDS: PIPERACILLIN/TAZOBACTAM 3.375 GM in DEXTROSE 5% 100 ML IV SCH ×2 (13:51→23:45)
[2019-07-15 13:54] LABS: Hematocrit (blood only) 44.8 % (42-52); Hemoglobin 15.8 g/dL (14.0-18.0); Mean Corpuscular Hemoglobin 30.3 pg (25-34); Mean Corpuscular Hgb Conc 35.3 g/dL (32-36); RDW Coefficient of Variation 12.9 % (11.5-14.5); RDW Standard Deviation 40.7 fL (36.4-46.3); Red Blood Count 5.21 M/uL (4.7-6.1); White Blood Count 8.02 K/uL (4.8-10.8)
[2019-07-15 14:10] LABS: INR 1.1 (0.9-1.1); Prothrombin Time 10.9 Seconds (9.0-12.0)
[2019-07-15 14:11] LABS: Platelet Count 88 K/uL (130-400)
[2019-07-15 14:21] LABS: Albumin Level 3.5 gm/dl (3.4-5.0); BUN Creatinine Ratio 16.4 (10-20); Calcium 8.7 mg/dl (8.5-10.1); Creatinine Clr Calc Pharmacy 58.1 ml/min; Est GFR (African American) 57.9
[2019-07-15 14:22] LABS: Basophils # (auto) 0.01 K/uL (0-0.2); Basophils % (auto) 0.1 %; Eosinophils # (auto) 0.05 K/uL (0-0.5); Eosinophils % (auto) 0.6 %; Immature Granulocytes # (auto) 0.02 K/uL (0.00-0.02); Immature Granulocytes % (auto) 0.2 %; Lymphocytes # (auto) 0.51 K/uL (1.2-3.4); Lymphocytes % (auto) 6.4 %; Monocytes # (auto) 0.53 K/uL (0.11-0.59); Monocytes % (auto) 6.6 %; Neutrophils % (auto) 86.1 %
[2019-07-15 14:27] LABS: Albumin Globulin Ratio 1.3 (0.9-2); Bilirubin,Total 8.2 mg/dl (0.2-1); Globulin 2.8 gm/dl (2.5-4.0); Total Protein 6.3 gm/dl (6.4-8.2)
[2019-07-15] MEDS: ACETAMINOPHEN 325 MG TAB PO PRN ×2 (16:08→16:10)
[2019-07-15] MEDS ORDERED: SODIUM CHLORIDE 0.65% NA SOLN 45 ML (OCEAN) ONE (20:00)
[2019-07-16] MEDS: SODIUM CHLORIDE 0.9% 1000ML 1,000 ML IV SCH ×2 (01:52→09:41)
[2019-07-16] MEDS: PIPERACILLIN/TAZOBACTAM 3.375 GM in DEXTROSE 5% 100 ML IV SCH ×2 (05:27→15:15)
[2019-07-16 05:45] LABS: Estimated Average Glucose 117 mg/dl; Hemoglobin A1C 5.7 % (4.5-5.6)
[2019-07-16 07:02] LABS: Hematocrit (blood only) 42.8 % (42-52); Hemoglobin 15.1 g/dL (14.0-18.0); Mean Corpuscular Hemoglobin 30.8 pg (25-34); Mean Corpuscular Hgb Conc 35.3 g/dL (32-36); Mean Corpuscular Volume 87.3 fL (80-100); RDW Coefficient of Variation 12.9 % (11.5-14.5); RDW Standard Deviation 41.3 fL (36.4-46.3)
[2019-07-16 07:12] LABS: Mean Platelet Volume 9.7 fL (7.4-10.4); Platelet Count 75 K/uL (130-400)
[2019-07-16 07:31] LABS: Basophils # (auto) 0.01 K/uL (0-0.2); Basophils % (auto) 0.2 %; Eosinophils # (auto) 0.05 K/uL (0-0.5); Eosinophils % (auto) 0.9 %; Immature Granulocytes # (auto) 0.03 K/uL (0.00-0.02); Immature Granulocytes % (auto) 0.5 %; Lymphocytes # (auto) 0.54 K/uL (1.2-3.4); Lymphocytes % (auto) 9.8 %; Monocytes # (auto) 0.41 K/uL (0.11-0.59); Monocytes % (auto) 7.5 %; Neutrophils # (auto) 4.46 K/uL (1.4-6.5); Neutrophils % (auto) 81.1 %
[2019-07-16 07:40] LABS: Albumin Level 3.1 gm/dl (3.4-5.0); BUN Creatinine Ratio 15.1 (10-20); Bilirubin Direct 2.7 mg/dl (0-0.2); Calcium 8.5 mg/dl (8.5-10.1); Est GFR (African American) 59.9; Est GFR (Non-African American) 51.7; Potassium 3.5 mmol/L (3.5-5.1)
[2019-07-16 07:48] LABS: Albumin Globulin Ratio 1.1 (0.9-2); Bilirubin,Total 4.4 mg/dl (0.2-1); Globulin 2.9 gm/dl (2.5-4.0)
[2019-07-16] MEDS: PANTOprazole 40 MG TAB PO SCH (09:06)
[2019-07-16] MEDS: CEROVITE ADV FORMULA TAB PO SCH (09:06)
[2019-07-16 09:11] LABS: Hepatitis B Surface Antigen Neg (Neg)
[2019-07-16 09:40] LABS: Hepatitis C IgG 13Yrs+Old_Rflx Neg (Neg)
--- NOTE | 2019-07-16 09:51 | Surgery Progress Note ---
Date of Service July 16, 2019 Assessment & Plan (1) Cholelithiasis: 63-year-old male with cholelithiasis and resolving obstructive pattern on his liver enzymes. Though the MRCP was normal, I suspect he passed a small stone. We discussed his options to include continued observation until his liver enzymes resolve as again I would be concerned that there is an underlying hepatic process. We also discussed performing a laparoscopic cholecystectomy today and try to perform a cholangiogram to determine if there is any obstruction. The patient elects for surgery. Plan for laparoscopic cholecystectomy with possible cholangiogram, and possible liver biopsy The risk of the procedure were discussed to include but not limited to bleeding, infection, retained stone, bile leak, damage surrounding structures, open surgery, need for future or more extensive surgery, failure to treat symptoms, and the risk of anesthesia Preoperative antibiotics Diagnosis, details the procedure and recovery, plan of care discussed the patient, all questions were answered, the patient expressed understanding agrees the plan of care as stated Present on Admission?: Yes Subjective 63-year-old male admitted with cholelithiasis and confirmed for cholecystitis along with elevated bilirubin and transaminases. MRCP was negative, bilirubin elevated to 8.7 yesterday, is now downtrending. He is denying any abdominal pain at this time. Review of Systems Review of Systems: All systems reviewed & are unremarkable except as noted in HPI & below Physical Exam Constitutional: WD/WN, vitals as above Eyes: PERRL, conjunctivae normal, anicteric sclerae ENMT: external ear and nose normal, oropharynx normal Neck: trachea midline, no thyromegaly Respiratory: normal respiratory effort, lungs clear to auscultation Cardiovascular: RRR, no murmur, no edema Gastrointestinal (Abdomen): normal bowel sounds, soft, nontender, no hepatosplenomegaly Musculoskeletal: no cyanosis or clubbing, extremities motor strength 5/5 Skin: no rashes, warm and dry + jaundice (Less jaundiced than yesterday) Neurologic: PERRL, EOMI, accommodation nl, no face palsy, no dysarthria Psychiatric: A+Ox3, euthymic affect Lymphatic: no cervical or axillary lymphadenopathy Results & Data Vital Signs (Past 12 Hours) Vital Signs Temp Pulse Resp BP Pulse Ox 07/16/19 07:55 37 C 78 18 149/88 H 96 07/16/19 03:10 36.9 C 84 20 152/89 H 94 07/15/19 23:39 37.2 C 84 19 139/88 96 Laboratory Results Laboratory Results - last 24 hr 07/15/19 07/15/19 07/15/19 07:16 07:16 13:42 WBC 8.02 RBC 5.21 Hgb 15.8 Hct 44.8 MCV 86.0 MCH 30.3 MCHC 35.3 RDW Std Deviation 40.7 RDW Coeff of Sharee 12.9 Plt Count 88 L MPV 10.0 Immature Gran % (Auto) 0.2 Neut % (Auto) 86.1 Lymph % (Auto) 6.4 Chase % (Auto) 6.6 Eos % (Auto) 0.6 Baso % (Auto) 0.1 Immature Gran # (Auto) 0.02 Neut # (Auto) 6.90 H Lymph # (Auto) 0.51 L [place] # (Auto) 0.53 Eos # (Auto) 0.05 Baso # (Auto) 0.01 PT INR Sodium 143 Potassium 4.3 Chloride 111 H Carbon Dioxide 26 Anion Gap 6.0 BUN 24 H Creatinine 1.54 H D Est Cr Clr Drug Dosing 55.9 Est GFR ( Amer) 55.2 Est GFR (Non-Af Amer) 47.6 BUN/Creatinine Ratio 15.8 Glucose 95 Estimat Average Glucose 117 Hemoglobin A1c 5.7 H Calcium 8.7 Total Bilirubin 7.4 H D Direct Bilirubin AST 536 H ALT 966 H Alkaline Phosphatase 123 H NT-Pro-B Natriuret Pep 283 Total Protein 6.1 L Albumin 3.2 L Globulin 2.9 Albumin/Globulin Ratio 1.1 Triglycerides Cancelled Cholesterol Cancelled LDL Cholesterol, Calc Cancelled VLDL Cholesterol, Calc Cancelled HDL Cholesterol Cancelled Cholesterol/HDL Ratio Cancelled Amylase 30 Lipase 146 TSH 0.632 Hepatitis A IgM Ab Hep Bs Antigen Hep B Core IgM Ab Hepatitis C Antibody 07/15/19 07/15/19 07/16/19 13:42 13:42 06:44 WBC 5.50 RBC 4.90 Hgb 15.1 Hct 42.8 MCV 87.3 MCH 30.8 MCHC 35.3 RDW Std Deviation 41.3 RDW Coeff of [place] 12.9 Plt Count 75 L MPV 9.7 Immature Gran % (Auto) 0.5 Neut % (Auto) 81.1 Lymph % (Auto) 9.8 Chase % (Auto) 7.5 Eos % (Auto) 0.9 Baso % (Auto) 0.2 Immature Gran # (Auto) 0.03 H Neut # (Auto) 4.46 Lymph # (Auto) 0.54 L [place] # (Auto) 0.41 Eos # (Auto) 0.05 Baso # (Auto) 0.01 PT 10.9 INR 1.1 Sodium 143 Potassium 4.0 Chloride 110 H Carbon Dioxide 26 Anion Gap 7.0 BUN 24 H Creatinine 1.48 H Est Cr Clr Drug Dosing 58.1 Est GFR ( Amer) 57.9 Est GFR (Non-Af Amer) 50.0 BUN/Creatinine Ratio 16.4 Glucose 105 H Estimat Average Glucose Hemoglobin A1c Calcium 8.7 Total Bilirubin 8.2 H Direct Bilirubin AST 546 H ALT 1056 H Alkaline Phosphatase 131 H NT-Pro-B Natriuret Pep Total Protein 6.3 L Albumin 3.5 Globulin 2.8 Albumin/Globulin Ratio 1.3 Triglycerides Cholesterol LDL Cholesterol, Calc VLDL Cholesterol, Calc HDL Cholesterol Cholesterol/HDL Ratio Amylase Lipase 137 TSH Hepatitis A IgM Ab Hep Bs Antigen Hep B Core IgM Ab Hepatitis C Antibody 07/16/19 07/16/19 07/16/19 06:44 06:44 06:44 WBC RBC Hgb Hct MCV MCH MCHC RDW Std Deviation RDW Coeff of Sharee Plt Count MPV Immature Gran % (Auto) Neut % (Auto) Lymph % (Auto) Chase % (Auto) Eos % (Auto) Baso % (Auto) Immature Gran # (Auto) Neut # (Auto) Lymph # (Auto) Chase # (Auto) Eos # (Auto) Baso # (Auto) PT INR Sodium 140 Potassium 3.5 Chloride 111 H Carbon Dioxide 21 Anion Gap 9.0 BUN 22 H Creatinine 1.44 H Est Cr Clr Drug Dosing 60.0 Est GFR ( Amer) 59.9 Est GFR (Non-Af Amer) 51.7 BUN/Creatinine Ratio 15.1 Glucose 90 Estimat Average Glucose Hemoglobin A1c Calcium 8.5 Total Bilirubin 4.4 H Direct Bilirubin 2.7 H AST 398 H ALT 971 H Alkaline Phosphatase 123 H NT-Pro-B Natriuret Pep Total Protein 6.0 L Albumin 3.1 L Globulin 2.9 Albumin/Globulin Ratio 1.1 Triglycerides Cholesterol LDL Cholesterol, Calc VLDL Cholesterol, Calc HDL Cholesterol Cholesterol/HDL Ratio Amylase Lipase TSH Hepatitis A IgM Ab Pending Hep Bs Antigen Neg Hep B Core IgM Ab Pending Hepatitis C Antibody Neg PG Care Time/CCT Total # of Minutes Spent Total Time Spent with Patient: Total time spent is greater than 50% in coordination of care (as documented) at patient's floor/unit and/or counseling patient: (1) Cholelithiasis Biliary obstruction: with biliary obstruction Cholelithiasis location: other site Qualified Code(s): K80.81 - Other cholelithiasis with obstruction
[2019-07-16] MEDS ORDERED: ePHEDrine sulfate 50 MG/ML AMP IV PRN (11:48)
[2019-07-16] MEDS ORDERED: fentaNYL citrate 100 MCG/2 ML VIAL IV PRN (11:48)
[2019-07-16] MEDS ORDERED: ATROPINE SULFATE 0.1 MG/ML 10ML SYR IV PRN (11:48)
[2019-07-16] MEDS ORDERED: HYDROmorphone INJ 1 MG/ML SYRINGE IV PRN (11:48)
[2019-07-16] MEDS ORDERED: ONDANSETRON INJ 2 MG/ML 2 ML VIAL IV PRN (11:48)
--- NOTE | 2019-07-16 11:51 | Anesthesiology Consultation ---
Date of Service July 16, 2019 Assessment & Plan (1) Encounter for pre-operative examination: Chart Review Chart Review: Acceptable Risk for Surgery and Patient NOT seen in Pre Admission Testing Consults Requested none History Surgery Operation Date: 07/16/19 09:20 Proposed Procedures p Laparoscopic Cholecystectomy with Cholangiogram - Alli Norton DO, FACS Height/Weight Height: 5 ft 10 in Weight: 89.9 kg Allergies Allergy/AdvReac Type Severity Reaction Status Date / Time codeine AdvReac Nausea Unverified 07/14/19 11:11 Medications Home Medications Medication Instructions Recorded Confirmed Last Taken fexofenadine 180 mg tablet 180 mg PO DAILY PRN tab 03/19/19 07/14/19 07/13/19 [id number]-bor 1 tab PO QAM 03/19/19 07/14/19 07/10/19 [Auojanxxhkt-Gkwqj-PQZ Complex] multivitamin with minerals 1 tab PO QAM tab 03/19/19 07/14/19 07/13/19 rabeprazole [AcipHex] 20 mg PO QAM 03/19/19 07/14/19 07/13/19 miscellaneous medical supply #1 ea 03/21/19 05/03/19 Unknown miscellaneous medical supply #1 ea 05/03/19 05/03/19 Unknown losartan [Cozaar] 100 mg PO QAM 07/14/19 07/14/19 07/13/19 oxycodone-acetaminophen [Percocet] 1 - 2 tab PO .every 4-6 hours PRN 07/16/19 Unknown #15 tab Active Medications Generic Name Dose Route Start Last Admin Trade Name Hien PRN Reason Stop Dose Admin Acetaminophen 650 mg 07/14/19 17:55 07/15/19 16:10 Tylenol PO 08/13/19 17:54 650 mg Q4H PRN Administration Pain or Fever Hydralazine HCl 10 mg 07/15/19 12:58 07/15/19 13:38 Hydralazine Hcl IV 08/14/19 12:57 10 mg Q6H PRN Administration Hypertension Sodium Chloride 1,000 mls @ 125 mls/hr 07/14/19 17:55 07/16/19 11:41 Nss 1000ml IV 08/13/19 17:54 0 mls/hr .Q8H WINDY Infusion Piperacillin Sod/Tazobactam 115 mls @ 28.75 mls/hr 07/15/19 14:00 07/16/19 09:30 Sod 3.375 gm/ Dextrose IV 07/25/19 13:59 Infused Q8H WINDY Infusion Protocol Promethazine HCl 6.25 mg/ 50.25 mls @ 201 mls/hr 07/15/19 11:56 07/15/19 13:54 Sodium Chloride IV 08/14/19 11:55 Infused Q6H PRN Infusion Nausea And Vomiting Ketorolac Tromethamine 15 mg 07/14/19 17:55 07/14/19 19:39 Toradol IV 07/19/19 17:54 15 mg Q6H PRN Administration Pain Losartan Potassium 100 mg 07/14/19 17:55 07/15/19 10:04 Cozaar PO 08/13/19 17:54 Not Given QAM WINDY Multivitamins/Minerals 1 tab 07/14/19 18:15 07/16/19 09:06 Multivitamin W/ Minerals Tab PO 08/13/19 18:14 Not Given QAM WINDY Ondansetron HCl 4 mg 07/14/19 17:55 07/15/19 20:32 Zofran IV 08/13/19 17:54 4 mg Q6H PRN Administration Nausea Pantoprazole Sodium 40 mg 07/15/19 09:00 07/16/19 09:06 Protonix PO 08/14/19 08:59 40 mg QAM WINDY Administration Past Medical History Medical History (Updated 07/16/19 @ 11:51 by Adolfo Arana MD) Central apnea Complex sleep apnea syndrome H/O: HTN (hypertension) Obstructive sleep apnea of adult Pancreatitis Sleep apnea with use of continuous positive airway pressure (CPAP) Exercise / Class Metabolic Activity II 4-5 Yardwork/Stairs/Walk up hill Past Family History Family History Other Family history non-contributory Past Surgical History Surgical History (Updated 07/16/19 @ 11:55 by Adolfo Arana MD) H/O knee surgery S/P UPPP (uvulopalatopharyngoplasty) Past Anesthesia History No Hx of Anesthesia Complications and No Family Hx of Anesthesia Complications History of PONV No Hx of PONV and No Hx of Motion Sickness Social History Smoking Status: Never smoker Do You Dip or Chew Tobacco: No Hx Alcohol Use: No Hx Substance Use: No Physical Exam Vital Signs Last Vital Signs Temp 36.9 C 07/16/19 11:51 Pulse 79 07/16/19 11:51 Resp 18 07/16/19 11:51 BP 162/97 H 07/16/19 11:51 Pulse Ox 95 07/16/19 11:51 Testing Laboratory Results 07/16/19 06:44 07/16/19 06:44 PT 10.9 Seconds (9.0-12.0) 07/15/19 13:42 INR 1.1 (0.9-1.1) 07/15/19 13:42 Hemoglobin A1c 5.7 % (4.5-5.6) H 07/15/19 07:16 Urine Color Dark Yellow 07/14/19 15:08 Urine Appearance Clear (Clear) 07/14/19 15:08 Urine pH 7.5 (4.5-7.5) 07/14/19 15:08 Ur Specific [facility] 1.019 (1.000-1.030) 07/14/19 15:08 Urine Protein Negative (Negative) 07/14/19 15:08 Urine Glucose (UA) Negative (Negative) 07/14/19 15:08 Urine Ketones Negative (Negative) 07/14/19 15:08 Urine Nitrite Negative (Negative) 07/14/19 15:08 Ur Leukocyte Esterase Negative (Negative) 07/14/19 15:08 Electrocardiogram Date: 07/14/19 Findings: + NSR @ (68) Normal sinus rhythm Normal ECG When compared with ECG of 19-MAR-2019 14:52, No significant change was found Confirmed by Alvarado Curry ([id number]) on 07/15/2019 3:41:44 PM
[2019-07-16] MEDS ORDERED: SCOPOLAMINE 1.5 MG TDSY TD ONE (12:04)
[2019-07-16] MEDS ORDERED: SCOPOLAMINE 1.5 MG TDSY ONE (12:06)
[2019-07-16] MEDS ORDERED: fentaNYL citrate 100 MCG/2 ML VIAL ONE ×2 (12:40→12:41)
[2019-07-16] MEDS ORDERED: CONRAY 60% 50 ML VIAL ONE (12:40)
[2019-07-16] MEDS ORDERED: BUPIVACAINE 0.5 % 5 MG/1 ML MPF 30ML VIAL ONE (12:40)
[2019-07-16] MEDS ORDERED: MIDAZOLAM HCL 1 MG/ML 2ML VIAL ONE (12:41)
[2019-07-16] MEDS ORDERED: PROPOFOL IV EMULSION 10 MG/ML 20 ML VIAL IV ONE (14:07)
[2019-07-16] MEDS ORDERED: NEOSTIGMINE METHYLSULFATE 5 MG/5 ML SYR ONE (14:07)
[2019-07-16] MEDS ORDERED: DEXAMETHASONE SOD INJ 4 MG/ML VIAL ONE (14:07)
[2019-07-16] MEDS ORDERED: GLYCOPYRROLATE 0.2 MG/ML VIAL ONE (14:07)
[2019-07-16] MEDS ORDERED: ONDANSETRON INJ 2 MG/ML 2 ML VIAL ONE (14:07)
--- NOTE | 2019-07-16 14:36 | Fluoroscopy Report ---
[place] cholangiogram OR CLINICAL HISTORY: Intraoperative cholangiogram status post cholecystectomy. COMPARISON STUDY: MRCP dated 07/14/2019 FLUOROSCOPY TIME: 36 seconds. NUMBER OF FLUOROSCOPIC IMAGES: 4 FINDINGS: Contrast was instilled into the common bile duct. There is no intra or extrahepatic biliary ductal dilatation. No filling defects are visualized. There was free flow into the duodenum. There i s reflux of contrast into the pancreatic duct. There is a probable periampullary duodenal diverticulu m. Extravasation of contrast is visualized within the subhepatic space. IMPRESSION: 1. No retained calculi identified. Free flow into the duodenum. Electronically signed by: Tanner Morton M.D. 07/16/2019 2:35 PM
--- NOTE | 2019-07-16 14:41 | Operative Report ---
[facility] Post Operative Report Pre & Post Diagnosis Operation Date: 07/16/19 09:20 Pre-Op Diagnosis: BILAIRY COLIC,DEVELOPING ACUTE CHOLECYSTITIS Post-Op Diagnosis: BILAIRY COLIC,DEVELOPING ACUTE CHOLECYSTITIS I identified the patient and participated in the time-out.: Yes Procedure Operation Date: 07/16/19 09:20 Actual Procedures p Laparoscopic Cholecystectomy with Cholangiogram(Not Applicable) - Alli Norton DO, FACS Surgeon Alli Norton DO, KRYSTLE Occupational Health Manager Zonia Person Estimated Blood Loss 10 Findings Consistent with Post-Op Diagnosis Dilation of the gallbladder but minimal inflammation. Critical view of safety obtained. Cholangiogram performed showing no filling defects in the common bile duct with free flow into the duodenum. Cystic duct and artery doubly clipped and divided. Hemostasis achieved. Specimens Gallbladder Anesthesia Type General Complications none Disposition Accompanied Patient To Recovery: No Disposition: Recovery Room Indications 63-year-old male admitted with cholelithiasis and probable cholecystitis. It was noted that he had elevated liver enzymes that continue to increase for 24 hours after discharge. An MRCP showed no filling defects. This morning his liver enzymes were stable and his bilirubin was downtrending. After discussion of his options, plan for laparoscopic cholecystectomy with possible cholangiogram, and possible liver biopsy. The risks of the procedure were discussed, all questions were answered, and the patient agreed to proceed with surgery as planned. Description of Procedure The patient was properly identified, consented, and taken to the operating room where he was placed in the supine position. General endotracheal anesthesia was induced. SCDs and a safety belt were placed. Preoperative antibiotics were administered. The patient's abdomen was prepped and draped in the standard sterile fashion. A surgical timeout was performed and all parties were in agreement that this was the correct patient and procedure to be performed and we continued as planned. An incision was made superior and to the left of the umbilicus overlying the rectus muscle and the Veress needle was inserted. Saline drop test confirmed entry into the peritoneum. The abdomen was insufflated with carbon dioxide which the patient tolerated without incident. The abdomen was then entered using the Optiview technique and a 5 mm trocar. The laparoscope was inserted and no damage from initial trocar or Veress needle placement was noted, no gross abnormalities were noted within the 4 quadrants of the abdomen. An 11 mm port was placed in the subxiphoid position and two 5 mm ports were then placed in the right subcostal position. The patient was placed in reverse Trendelenburg position and rotated towards the left. The gallbladder was distended but minimally inflamed. The dome of the gallbladder was retracted towards the left upper quadrant and the infundibulum was retracted toward the right lower quadrant revealing Calot's triangle. Peritoneal attachments were taken down with electrocautery and blunt dissection. The cystic duct and artery were circumferentially dissected. A window of safety was obtained showing the cystic duct entering the gallbladder with no aberrant structures noted. The Spencer cholangiocatheter was then used to perform an intraoperative cholangiogram which showed no filling defects, and good filling of the duodenum and hepatic radicals with contrast. There was an apparent periampullary diverticulum as well as retrograde filling of the pancreatic duct. The cystic duct and artery were doubly clipped and divided. The gallbladder was then lifted off the gallbladder fossa with electrocautery. The gallbladder was placed in an Endo Catch bag and removed through the subxiphoid port site. The right upper quadrant was irrigated and hemostasis was found to be good. 5 mm trochars were removed under direct visualization and the abdomen was allowed to collapse. The subxiphoid port site fascia was closed with 0 Vicryl suture in the Felton-Robert device. The wound was irrigated, and the skin of all ports was closed with 4-0 Monocryl subcuticular sutures. Dermabond was placed over the wounds. The patient was extubated in the operating room and taken to the PACU where he recovered without apparent incident. All sponge, instrument and needle counts were correct at the conclusion of the procedure. The patient tolerated the procedure well. The physician's title i assistant was present and scrubbed for the entirety of the case and was essential in positioning the patient, prepping and draping, retraction and exposure, driving the laparoscope, removal of the gallbladder, closure the incisions, and placement of the dressings. I attest to the content of the Intraoperative Record and any orders documented therein. Any exceptions are noted below.
--- NOTE | 2019-07-16 15:38 | Anesthesiology Progress Note ---
Date of Service July 16, 2019 Anesthesia Post Procedure Vital Signs Vital Signs: Temp Pulse Pulse Pulse Pulse Resp BP 07/16/19 15:25 84 22 146/95 H 07/16/19 15:15 82 20 126/75 07/16/19 15:05 83 22 138/86 07/16/19 14:58 36.3 C L 90 17 130/80 07/16/19 11:51 36.9 C 79 18 162/97 H 07/16/19 11:34 37.1 C 77 18 155/88 H 07/16/19 07:55 37 C 78 18 149/88 H 07/16/19 03:10 36.9 C 84 20 152/89 H 07/15/19 23:39 37.2 C 84 19 139/88 07/15/19 19:05 36.9 C 82 19 165/91 H 07/15/19 16:00 79 88 151/91 H Pulse Ox 07/16/19 15:25 93 07/16/19 15:15 95 07/16/19 15:05 97 07/16/19 14:58 91 07/16/19 11:51 95 07/16/19 11:34 96 07/16/19 07:55 96 07/16/19 03:10 94 07/15/19 23:39 96 07/15/19 19:05 97 07/15/19 16:00 Pain Intensity Right Upper Abdomen: Pain Intensity: 5 Transfer of Care Handoff Completed per policy Notes Mental Status: alert / awake / arousable and participated in evaluation Patient Amnestic to Procedure: Yes Nausea / Vomiting: adequately controlled Pain: adequately controlled Airway Patency, RR, SpO2: stable & adequate BP & HR: stable & adequate Hydration State: stable & adequate Anesthetic Complications: no major complications apparent
[2019-07-16] MEDS ORDERED: MoRPHine SULFATE 2 MG/ML CARP IV PRN (15:50)
[2019-07-16] MEDS ORDERED: OXYCODONE/ACETAMINOPHEN 5mg/325mg TAB PO PRN ×2 (15:50)
[2019-07-16] MEDS ORDERED: MoRPHine SULFATE 4 MG/ML 1 ML CARP\\VIAL IV PRN (15:50)
[2019-07-16] MEDS: CHECK SCOPOLAMINE PATCH PLACEMENT SCH ×2 (15:51→23:21)
[2019-07-16] MEDS: LACTATED RINGER'S 1,000 ML IV SCH ×2 (16:05→23:20)
[2019-07-16] MEDS: KETOROLAC TROMETHAMINE 15 MG/ML VIAL IV PRN (20:45)
--- NOTE | 2019-07-16 21:09 | Hospitalist Progress Note ---
Date of Service July 16, 2019 Assessment & Plan (1) Cholelithiasis: Presented with RUQ pain/biliary colic in setting of significantly elevated LFTs. Imaging studies with copious gallstones in gall bladder but normal CBD. Prelim diagnosis suggestive of acute cholecystitis. Pain improved; LFTs trended down today. Went to OR with Dr Norton today. s/p lap seven with intra-op cholangiogram. Latter negative for CBD filling defects. Doing well post-op this evening. Plan repeat LFTs in am. Cont IVF overnight. Diet management per gen surg. Appreciate gen surg and GI consults. (2) Transaminitis: Likely 2nd to acute cholecystitis. Improved today. Repeat LFTs in am. Infectious hep studies thus far negative. (3) Essential hypertension: Losartan resumed. BPs reasonably controlled. (4) Thrombocytopenia: -Uncertain of underlying etiology -is a rather isolated finding as he is not deficient other blood counts -Currently awaiting coag studies -does have fatty liver on imaging -possible relation to underlying liver dysfunction? -No signs of bleeding at this time -We will have to monitor platelet count closely is currently on Zosyn therapy which can induce further thrombocytopenia (5) Obstructive sleep apnea of adult: cont CPAP (6) Pancreatitis: likely 2nd to gallstones. biochemically lipase never terribly high. presenting abdominal symptoms improved. (7) DVT prophylaxis: SCDs chemical means deferred due to recent surgery consider starting chemical means tomorrow repeat labs am change observation to full admission status given the markedly elevated LFTs, mild pancreatitis, etc Subjective saw the patient post-cholecystectomy on the tele unit. he was resting comfortably. he had mild incisional tenderness only. had nausea earlier but now resolved. denied any cp, dyspnea or vomiting. tolerated a basic dinner this evening. telemetry normal overnight. Review of Systems Constitutional: no fever and no chills Respiratory: no cough and no dyspnea Cardiovascular: no chest pain Gastrointestinal: as per Subjective / HPI and + abdominal pain; no bloating Physical Exam Constitutional: well developed and well nourished; no acute distress and no altered mental status Eyes: + anicteric sclerae ENMT: external ear and nose normal, oropharynx normal Respiratory: normal respiratory effort, lungs clear to auscultation Cardiovascular: Rate/Rhythm: regular rate and regular rhythm Heart Sounds: normal S1 and normal S2; no murmur Vessels: posterior tibial pulses present and dorsalis pedis pulses present; no JVD Extremities: no edema Gastrointestinal (Abdomen): Inspection/Auscultation: + abdomen distended; + abnormal bowel sounds (decreased) Percussion/Palpation: abdomen nontender and no hepatosplenomegaly Skin: abdominal wall incisions clean Psychiatric: A+Ox3, euthymic affect Results & Data Vital Signs (Past 12 Hours) Vital Signs Temp Pulse Pulse Pulse Resp BP Pulse Ox 07/16/19 19:26 37.7 C H 89 18 148/87 H 93 07/16/19 18:25 37.4 C 92 H 18 92 07/16/19 17:02 37.1 C 79 18 148/86 H 95 07/16/19 16:56 83 07/16/19 16:30 36.6 C 73 18 155/86 H 96 07/16/19 15:50 37.1 C 82 18 150/88 H 93 07/16/19 15:35 37.2 C 80 20 147/91 H 95 07/16/19 15:25 84 22 146/95 H 93 07/16/19 15:15 82 20 126/75 95 07/16/19 15:05 83 22 138/86 97 07/16/19 14:58 36.3 C L 90 17 130/80 91 07/16/19 11:51 36.9 C 79 18 162/97 H 95 07/16/19 11:34 37.1 C 77 18 155/88 H 96 Laboratory Results Laboratory Results - last 24 hr 07/15/19 07/15/19 07/16/19 07:16 07:16 06:44 WBC 5.50 RBC 4.90 Hgb 15.1 Hct 42.8 MCV 87.3 MCH 30.8 MCHC 35.3 RDW Std Deviation 41.3 RDW Coeff of Sharee 12.9 Plt Count 75 L MPV 9.7 Immature Gran % (Auto) 0.5 Neut % (Auto) 81.1 Lymph % (Auto) 9.8 [place] % (Auto) 7.5 Eos % (Auto) 0.9 Baso % (Auto) 0.2 Immature Gran # (Auto) 0.03 H Neut # (Auto) 4.46 Lymph # (Auto) 0.54 L [place] # (Auto) 0.41 Eos # (Auto) 0.05 Baso # (Auto) 0.01 Sodium 143 Potassium 4.3 Chloride 111 H Carbon Dioxide 26 Anion Gap 6.0 BUN 24 H Creatinine 1.54 H D Est Cr Clr Drug Dosing 55.9 Est GFR ( Amer) 55.2 Est GFR (Non-Af Amer) 47.6 BUN/Creatinine Ratio 15.8 Glucose 95 Estimat Average Glucose 117 Hemoglobin A1c 5.7 H Calcium 8.7 Total Bilirubin 7.4 H D Direct Bilirubin AST 536 H ALT 966 H Alkaline Phosphatase 123 H NT-Pro-B Natriuret Pep 283 Total Protein 6.1 L Albumin 3.2 L Globulin 2.9 Albumin/Globulin Ratio 1.1 Triglycerides Cancelled Cholesterol Cancelled LDL Cholesterol, Calc Cancelled VLDL Cholesterol, Calc Cancelled HDL Cholesterol Cancelled Cholesterol/HDL Ratio Cancelled Amylase 30 Lipase 146 TSH 0.632 Hepatitis A IgM Ab Hep Bs Antigen Hep B Core IgM Ab Hepatitis C Antibody 07/16/19 07/16/19 07/16/19 06:44 06:44 06:44 WBC RBC Hgb Hct MCV MCH MCHC RDW Std Deviation RDW Coeff of Sharee Plt Count MPV Immature Gran % (Auto) Neut % (Auto) Lymph % (Auto) [place] % (Auto) Eos % (Auto) Baso % (Auto) Immature Gran # (Auto) Neut # (Auto) Lymph # (Auto) [place] # (Auto) Eos # (Auto) Baso # (Auto) Sodium 140 Potassium 3.5 Chloride 111 H Carbon Dioxide 21 Anion Gap 9.0 BUN 22 H Creatinine 1.44 H Est Cr Clr Drug Dosing 60.0 Est GFR ( Amer) 59.9 Est GFR (Non-Af Amer) 51.7 BUN/Creatinine Ratio 15.1 Glucose 90 Estimat Average Glucose Hemoglobin A1c Calcium 8.5 Total Bilirubin 4.4 H Direct Bilirubin 2.7 H AST 398 H ALT 971 H Alkaline Phosphatase 123 H NT-Pro-B Natriuret Pep Total Protein 6.0 L Albumin 3.1 L Globulin 2.9 Albumin/Globulin Ratio 1.1 Triglycerides Cholesterol LDL Cholesterol, Calc VLDL Cholesterol, Calc HDL Cholesterol Cholesterol/HDL Ratio Amylase Lipase TSH Hepatitis A IgM Ab Pending Hep Bs Antigen Neg Hep B Core IgM Ab Pending Hepatitis C Antibody Neg PG Care Time/CCT Total # of Minutes Spent Total Time Spent with Patient: Total time spent is greater than 50% in coordination of care (as documented) at patient's floor/unit and/or counseling patient: (1) Pancreatitis Acute pancreatitis complication: no infection or necrosis Chronicity: acute Pancreatitis type: biliary Qualified Code(s): K85.10 - Biliary acute pancreatitis without necrosis or infection (2) Cholelithiasis Biliary obstruction: with biliary obstruction Cholelithiasis location: other site Qualified Code(s): K80.81 - Other cholelithiasis with obstruction
[2019-07-16] MEDS: ACETAMINOPHEN 325 MG TAB PO PRN (21:12)
[2019-07-16] MEDS ORDERED: RAPID SEQUENCE INDUCTION BAG ONE (22:29)
[2019-07-17] MEDS: LACTATED RINGER'S 1,000 ML IV SCH (06:06)
[2019-07-17 07:11] LABS: Hematocrit (blood only) 38.6 % (42-52); Hemoglobin 13.6 g/dL (14.0-18.0); Mean Corpuscular Hemoglobin 30.2 pg (25-34); Mean Corpuscular Hgb Conc 35.2 g/dL (32-36); Mean Corpuscular Volume 85.6 fL (80-100); RDW Standard Deviation 40.8 fL (36.4-46.3); Red Blood Count 4.51 M/uL (4.7-6.1); White Blood Count 6.19 K/uL (4.8-10.8)
[2019-07-17 07:14] LABS: Mean Platelet Volume 9.9 fL (7.4-10.4); Platelet Count 69 K/uL (130-400)
[2019-07-17 07:34] LABS: Basophils # (auto) 0.01 K/uL (0-0.2); Basophils % (auto) 0.2 %; Eosinophils # (auto) 0.03 K/uL (0-0.5); Eosinophils % (auto) 0.5 %; Immature Granulocytes # (auto) 0.02 K/uL (0.00-0.02); Immature Granulocytes % (auto) 0.3 %; Lymphocytes # (auto) 0.81 K/uL (1.2-3.4); Lymphocytes % (auto) 13.1 %; Monocytes # (auto) 0.66 K/uL (0.11-0.59); Monocytes % (auto) 10.7 %; Neutrophils # (auto) 4.66 K/uL (1.4-6.5); Neutrophils % (auto) 75.2 %
[2019-07-17 07:52] LABS: Albumin Level 2.7 gm/dl (3.4-5.0); Est GFR (African American) 61.4; Potassium 3.6 mmol/L (3.5-5.1)
[2019-07-17 07:59] LABS: Albumin Globulin Ratio 0.9 (0.9-2); Bilirubin,Total 2.7 mg/dl (0.2-1); Globulin 2.9 gm/dl (2.5-4.0); Total Protein 5.6 gm/dl (6.4-8.2)
[2019-07-17] MEDS: CHECK SCOPOLAMINE PATCH PLACEMENT SCH (08:09)
[2019-07-17] MEDS: CEROVITE ADV FORMULA TAB PO SCH (08:09)
[2019-07-17] MEDS: PANTOprazole 40 MG TAB PO SCH (08:09)
[2019-07-17] MEDS: LOSARTAN POTASSIUM 50 MG TAB PO SCH (08:33)
--- NOTE | 2019-07-17 09:05 | Surgery Progress Note ---
Date of Service July 17, 2019 Assessment & Plan (1) S/P laparoscopic cholecystectomy: POD#1 laparoscopic cholecystectomy LFT's downtrending, Tbili 2.7 from 4.4, AST: 209, ALT: 741, Alkp: 104 WBC 6.1 Hepatitis studies still pending Okay to advance diet as tolerates Will leave instructions for patient to follow up in clinic with Dr. Norton within 1-2 weeks Subjective Patient is feeling well. Says he has some abdominal soreness júnior-incisions, but is other lee manageable and improved since admission. Tolerating clears without nausea/vomiting. Has some abdominal bloat, but has been up walking around and he is starting to pass flatus. Physical Exam Physical Exam: awake/alert Respiratory: normal respiratory effort Gastrointestinal (Abdomen): Inspection/Auscultation: + abdomen distended and + abdominal surgical incision (c/d/i with dermabond overtop) Percussion/Palpation: + abdomen tender (mildly júnior- incisions) and abdomen soft Results & Data Vital Signs (Past 12 Hours) Vital Signs Temp Pulse Resp BP Pulse Ox 07/17/19 07:23 37.4 C 88 22 131/76 91 07/17/19 02:53 36.9 C 79 20 130/74 96 07/16/19 23:25 36.6 C 87 20 126/72 90 PG Care Time/CCT Total # of Minutes Spent Total Time Spent with Patient: Total time spent is greater than 50% in coordination of care (as documented) at patient's floor/unit and/or counseling patient:
[2019-07-17 14:09] LABS: Hepatitis B Core Antibody IgM NON-REACTIVE
[2019-07-17 14:10] LABS: Hepatitis A Antibody IgM NON-REACTIVE
--- NOTE | 2019-07-17 18:13 | Discharge Summary ---
Date of Service date of admission - July 14, 2019 date of discharge - July 17, 2019 Admission HPI Per Admitting Provider Patient is a 63 years old male with past medical history of pancreatitis, obstructive sleep apnea, patient uses CPAP at night, hypertension who presents to the emergency room with complaint of abdominal discomfort that started this morning around 6 AM. Patient developed a mostly right-sided abdominal pain that radiates to his back. Patient describes his pain as a back spasm. He noted that burping helped and relieved some of his pain. Patient reports having similar pain in March when he had a CT scan which showed distended gallbladder with stone and sludge. Patient states that he was dry heaving this morning but he did not vomit. Patient denies fever, chills, headache, chest pain, shortness of breath, frequency, urgency, melena, dysuria, hematuria or hematochezia. Labs are reviewed: WBC is 7.61, hemoglobin 17.9, hematocrit 49.9, platelets 111. Sodium 143, potassium 3.9, chloride 110, BUN 19, creatinine 1.24, GFR 61.9, AST 226, ALT 263, alkaline phosphatase 109, lipase 560. CT scan of abdomen and pelvis shows: Distended gallbladder. This is nonspecific but could represent a developing acute cholecystitis. Hepatic steatosis. No bowel wall thickening or obstruction. Normal appendix. Colonic diverticulosis. Bilateral renal cyst. A 5 mm nodule within the left lower lobe. Ultrasound of the right upper quadrant showed distended gallbladder containing a few punctate stones and sludge. No significant gallbladder wall thickening. Negative sonographic Jonas sign. There must be trace júnior-cholecystitis fluid/edema. Therefore these findings are equivocal to acute cholecystitis. Hepatic steatosis. Right renal cyst. Mild to moderate distention of the gallbladder with combination of containing stones and sludge. Normal caliber common bile duct at 5 mm(this was repeated test comparison to March 19, 2019). Decision was made to admit patient to PCU on telemetry for observation for biliary colic, developing acute seven cystitis. Principal Diagnosis biliary colic, abnormal LFTs, chronic cholecystitis s/p lap seven Discharge Exam Constitutional well developed and well nourished; no acute distress and no altered mental status Eyes + anicteric sclerae ENMT external ear and nose normal, oropharynx normal Respiratory normal respiratory effort, lungs clear to auscultation Cardiovascular Rate/Rhythm: regular rate and regular rhythm Heart Sounds: normal S1 and normal S2; no murmur Vessels: posterior tibial pulses present and dorsalis pedis pulses present; no JVD Extremities: no edema Gastrointestinal (Abdomen) Inspection/Auscultation: + abdomen distended (mild); + abnormal bowel sounds Percussion/Palpation: abdomen nontender and no hepatosplenomegaly Skin abdominal wall incisions clean Psychiatric A+Ox3, euthymic affect Discharge Data Allergies Allergy/AdvReac Type Severity Reaction Status Date / Time codeine AdvReac Nausea Unverified 07/14/19 11:11 Consultations 1. [facility] GI - Jeancarlos Oden MD 2. general surgery - Alli Norton DO Procedures Performed Operation Date: 07/16/19 Laparoscopic Cholecystectomy with Cholangiogram - Alli Norton, , FACS Ordered Studies 1. u/s gall bladder - IMPRESSION: 1. Mild to moderate distention of the gallbladder with a combination of contain stones and sludge. 2. Normal caliber common bile duct at 5 mm. 3. Fatty replacement of the liver. 4. Several right renal cyst. No evidence for hydronephrosis. 5. This study is similar compared to the prior exam. 2. MRCP - IMPRESSION: 1. Normal bile ducts and pancreatic duct. 2. Mild gallbladder distention. No calculi identified. Hospital Course (1) Cholelithiasis: Presented with RUQ pain/biliary colic in setting of significantly elevated LFTs. Imaging studies with copious gallstones in gall bladder but normal CBD. There was high concern of acute cholecystitis given the clinical picture. GI and general surgery were both consulted. Ultimately the patient went to the OR with Dr Alli Norton who performed laparoscopic cholecystectomy and intra-op cholangiogram. Cholangiogram did NOT show any CBD filling deficits to suggest choledocholithiasis. Grossly the gall bladder was only minimally inflamed. Post-op his LFTs trended downward. He had mild incisional pain only. He tolerated a diet and passed flatus before discharge. Surgical Pathology from the gall bladder was consistent with chronic cholecystitis. He will follow-up with general surgery post-discharge for incision check. Low fat diet was recommended for 7-10 days. He will return to [facility] in 2 days following discharge for repeat LFTs and CBC. (2) Transaminitis: 2nd to cholecystitis (see above). LFTs improved prior to discharge. Hep A,B, and C titers were negative. He was asked to avoid tylenol and alcohol post-discharge. He will return to [facility] in 48 hours after discharge for repeat LFTs. (3) Essential hypertension: Losartan resumed. BPs reasonably controlled while hospitalized. (4) Thrombocytopenia: Uncertain etiology. Discharge platelet count was 69. Of note - the patient's platelet count was 97 earlier in 2019. Thus, his thrombocytopenia may be chronic. He will return in 48 hours post-discharge for repeat CBC to ensure stability. I recommended he speak with his PCP to obtain an outpatient heme/onc referral for additional work-up for this. (5) Obstructive sleep apnea of adult: cont CPAP as previous (6) Pancreatitis: likely 2nd to gallstones. Biochemically lipase never terribly high (peak was 560). Lipase normalized to <150 quickly. It is possible he passed a small gallstone just prior to admission causing the mild pancreatitis. Low fat diet for 7-10 days recommended post-discharge. Total Time Total Time Spent Total Time Spent (In Minutes): 40 Total Time Includes: Examination of the Patient, Discharge Planning, Medication Reconciliation and Communication With Other Providers Discharge Plan Discharge Items Patient Disposition: Home - Self-Care Reason For Visit: abdominal pain Discharge Diagnosis: abdominal pain due to gallstones. removal of gall bladder via laparoscopic cholecystectomy by Dr Norton. Activity: Per Instructions section Lifting: No more than 10 pounds Bathing Comment: may shower. no soaking in tubs Exercise/Sports: Wait until after follow-up appointment Driving/Machine Use: do not resume driving while taking narcotics for pain Non-emergency contact: Primary Care Provider and Surgeon Call non-emergency contact if: you have any medication questions, your symptoms worsen, your pain is not controlled, your pain is worsening, your pain is concerning for you, you have a fever, your wound has increased redness, your wound has increased drainage and your wound pain has increased Follow-up/Referrals: Alli Norton, , KRYSTLE [Physician] - 07/26/19 9:10 am (Please, follow up at [facility] General Surgery Office with Dr. Norton on July 26 at 9:10 am. *You may call the office sooner if you have any questions/concerns. The office is located at [address] in [place]. The office phone number is [phone].) Alexandria Contreras CRNP [Primary Care Provider] - 07/24/19 9:50 am (Please, follow up with Alexandria ARMANDO on TuesdayJuly 24 at 9:50 am. *If you need to change this appointment, call the office at [phone].) Diet: Low Fat Addtl Attending Provider Instructions: You presented with severe abdominal pain. You were found to have numerous gallstones in your gall bladder, abnormal liver function tests ("LFTs"), and a mildly elevated lipase (pancreas test) level. We were concerned that you had an acutely infected gall bladder. You were seen by the general surgeons and director market research. All felt that you should have your gall bladder removed. You subsequently underwent cholecystectomy by Dr Norton on 07/16/19. The pathology report from the gall bladder showed that it was chronically inflamed. In addition to the above we saw that you had mild-moderate low platelets. It appears that this is a chronic problem. Your platelet count was in the low 100s in 2018. You will need to have repeat blood work THIS WEEK, preferably on 07/19/19. These labs can be drawn at [facility] main lab. While waiting for the liver tests to normalize please AVOID alcohol and DO NOT TAKE any [id number] tylenol (acetaminophen) products. If you have post-operative pain in your abdomen you may take oxycodone 5mg every 6 hours as needed. Note that oxycodone is a narcotic pain killer and thus it can make you sleepy. DO NOT DRINK alcohol while taking pain killers. The oxycodone can cause constipation. If you get constipated from the oxycodone you can take [id number] miralax and/or senakot for the bowels. Follow-up -- see separate section. Please also ask Ms Contreras for a referral to a wood and wood products labourer for the low platelet count. Return to [facility] if -- * you have fever over 100.5 degrees * you have worsening abdominal pain, nausea, vomiting or inability to have a bowel movement * you have severe diarrhea * you have redness, swelling or drainage from any of your incisions from the surgery * any other concerns Pending Studies at Discharge: No Stand-Alone Forms: My [facility], Smoking Cessation Medications and DC Order Prescriptions: New oxycodone 5 mg capsule 5 mg PO Q6H PRN (Reason: pain) Qty: 14 RF: 0 potassium chloride 20 mEq tablet extended release 20 meq PO DAILY 5 Days Qty: 5 RF: 0 Continued (DME) CPAP Supplies Misc See Dose Instructions .ROUTE .MEDSUPPLY Qty: 1 RF: 0 (DME) CPAP Supplies Misc See Dose Instructions .ROUTE .MEDSUPPLY Qty: 1 RF: 0 fexofenadine [Jami Allergy] 180 mg tablet 180 mg PO DAILY PRN (Reason: Allergy Symptoms) RF: 0 multivitamin with minerals [Men's One Daily] tablet 1 tab PO QAM RF: 0 losartan [Cozaar] 100 mg tablet 100 mg PO QAM RF: 0 rabeprazole [AcipHex] 20 mg tablet,delayed release (DR/EC) 20 mg PO QAM RF: 0 Kzqipctpxol-Azeep-REV Complex [id number] mg Tablet 1 tab PO QAM RF: 0 Discharge Orders: Discharge Order (Routine); Ordered 07/17/19 Ordered By: Roland Flores Admission Data Admit Date/Time: 07/16/19 11:47 Attending Provider: Roland Flores Admit Provider: Sanjana Rosales Primary Care Provider: Alexandria Contreras Other Providers: Sanjana Rosales ; Jeancarlos Oden ; Alli Norton Other Interventions: Discharge Summary Assessment (RN) Last Done: 07/17/19 16:45 DC Date/Time DO NOT enter until pt leaves facility: 07/17/19 18:41
== END 2019-07-17 18:41 | disposition home or self-care (01) | DRG 417 ==
LOC: ED 10:22 → 2S 10:22 → SUATTDRO 16:35 → 2S 17:39